=== PATIENT | female | born 1975 ===

== ENCOUNTER 2024-01-24 05:13 | Day surgery (SDC) | payer OTHER ==
[2024-01-21 08:36] VITALS: BP 111/68
[2024-01-21 08:52] LABS: HEMATOCRIT 37.5 % (36.0-45.00); HEMOGLOBIN 12.2 g/dL (12.0-15.00); MEAN CELL VOLUME 85.1 fL (80.00-100.00); MEAN CORPUSCULAR HEMOGLOBIN 27.8 pg (27.00-32.0); MEAN CORPUSCULAR HGB CONC 32.6 g/dl (32.0-36.0); PLATELET COUNT 315 K/uL (150-450); RED BLOOD COUNT 4.41 M/uL (4.00-6.00); RED CELL DISTRIBUTION WIDTH 13.8 % (11.5-14.5)
[2024-01-21 09:17] LABS: PH,URINE 7.5 (5.0-8.0); URINE APPEARANCE Clear; URINE BILIRRUBIN Negative (NEGATIVE); URINE BLOOD Trace; URINE COLOR Yellow; URINE GLUCOSE Negative (NEGATIVE); URINE KETONE Negative (NEGATIVE); URINE LEUKOCYTE Negative; URINE NITRATE Negative; URINE PROTEIN Negative (NEGATIVE); URINE UROBILINOGEN 0.2 E.U./dl
[2024-01-21 09:22] LABS: URINE BACTERIA 154.9 uL (0.0-1933); URINE EPITHELIAL CELLS 6.6 uL (0.0-38.8); URINE RBC 20.9 uL (0.0-20.8); URINE WBC 6.3 uL (0.0-23.2)
[2024-01-21 09:31] LABS: INR 0.99; PARTIAL THROMBOPLASTIN TIME 27.9 SECONDS (22.0-34.0)
[2024-01-21 09:35] LABS: PROTHROMBIN TIME 10.8 SECONDS (9.0-11.5)
[2024-01-21 09:37] LABS: URINE CAST 0.15 uL (0.0-1.40)
[2024-01-21 10:12] LABS: ALBUMIN 3.7 gm/dL (3.4-5.0); BILIRUBIN TOTAL 0.53 mg/dL (0.3-1.2); CALCIUM 9.2 mg/dL (8.5-10.1); CREATININE SERUM 0.65 mg/dL (0.55-1.02); GFR 97.7; GLOBULINA 3.9 G/DL (2.4-3.5); POTASSIUM 4.54 mEq/L (3.5-5.1); TOTAL PROTEIN 7.6 gm/dL (6.4-8.2)
[~2024-01-24] VITALS: Ht 149.9 cm; Wt 77.1 kg
[~2024-01-24 05:13] MED LIST: PROAIR RESPICL90 MCG IH; TEZSPIRE210 MG/1.9 SQ; [UNRECOGNIZED DRUG - CODE]
[2024-01-24] MEDS ORDERED: CEFAZOLIN SODIUM 1,000 MG VIAL IV SCH (08:15)
[2024-01-24] MEDS ORDERED: POVIDONE-IODINE 118 ML BOTT TOP ONE (08:15)
[2024-01-24] MEDS ORDERED: MORGIDOX100 MG PO (08:38)
[2024-01-24] MEDS ORDERED: NAPROXEN500 MG PO (08:39)
[2024-01-24] MEDS ORDERED: MORPHINE SULFATE 4 MG/ML VIAL IV ONE (10:30)
== END 2024-01-24 14:25 | disposition home or self-care (01) ==
LOC: CIR.AMB 05:13
PROVIDERS: ATTEND Obstetrics & Gynecology
DX: D25.0 Submucous leiomyoma of uterus (principal); N80.03 Adenomyosis of the uterus; N84.0 Polyp of corpus uteri; N92.0 Excessive and frequent menstruation with regular cycle